=== PATIENT | female | born 1960 | race African-American/Black ===

== ENCOUNTER 2024-04-10 08:22 | Observation (INO) | payer OTHER ==
[2024-04-10] MEDS: oxyCODONE ER 10 MG TAB.ER PO ONE ×2 (09:16→18:55)
[2024-04-10] MEDS: Pregabalin 25 MG Cap PO ONE ×2 (09:16→18:55)
[2024-04-10] MEDS: Acetaminophen 325 MG Tab PO ONE ×2 (09:16→18:54)
[2024-04-10] MEDS ORDERED: Propofol 200 MG/20 ML SDV ONE ×3 (09:40→11:28)
[2024-04-10] MEDS ORDERED: dexmedeTOMIDine HCl 200 MCG/2 ML SDV ONE (09:41)
[2024-04-10] MEDS ORDERED: Ropivacaine 0.5% 5 MG/ML 30 ML SDV ONE (09:41)
[2024-04-10] MEDS ORDERED: Ondansetron 4 MG/2 ML SDV ONE (09:41)
[2024-04-10] MEDS ORDERED: Midazolam 1 MG/ML 2 ML SDV ONE (09:52)
[2024-04-10] MEDS ORDERED: Tranexamic Acid 1,000 MG/10 ML Vial ONE (10:01)
[2024-04-10] MEDS ORDERED: VANCOmycin 1 GM SDV ONE (10:02)
[2024-04-10] MEDS ORDERED: Lactated Ringers 1,000 ML IV ONE (10:17)
[2024-04-10] MEDS ORDERED: Phenylephrine 1% 10 MG/ML SDV ONE (10:36)
[2024-04-10] MEDS ORDERED: ceFAZolin 2 GM Vial ONE (10:45)
[2024-04-10] MEDS ORDERED: Lactated Ringers 1,000 ML ONE (10:52)
[2024-04-10] MEDS ORDERED: Ketamine 200 MG/20 ML MDV ONE (11:30)
[2024-04-10] MEDS: Morphine 8 MG, EPINEPHrine 0.3 MG, Cefuroxime 750 MG, Ketorolac 30 MG, Sodium Chloride ... PRN (11:47)
[2024-04-10] MEDS: Tranexamic Acid 1,000 MG/10 ML Vial ONE (11:53)
[2024-04-10] MEDS: VANCOmycin 1 GM SDV ONE (11:53)
[2024-04-10] MEDS: Triamcinolone Acetonide 40 MG/ML 1 ML SDV ONE (12:16)
[2024-04-10] MEDS: Bupivacaine 0.25% 10 ML SDV ONE (12:16)
[2024-04-10] MEDS ORDERED: HYDROmorphone 0.5 MG/0.5 ML Syringe IVPUSH PRN (12:40)
[2024-04-10] MEDS ORDERED: fentaNYL 100 MCG/2 ML SDV IVPUSH PRN (12:40)
[2024-04-10] MEDS: oxyCODONE 5 MG Tab PO PRN ×2 (15:05→19:00)
[2024-04-10] MEDS: Ondansetron 4 MG/2 ML SDV IVPUSH PRN (15:50)
[2024-04-10] MEDS: Acetaminophen 325 MG Tab PO PRN (16:15)
[2024-04-10] MEDS ORDERED: hydrALAZINE 20 MG/ML SDV IVPUSH PRN (18:58)
[2024-04-10] MEDS ORDERED: Naloxone 0.4 MG/ML SDV IVPUSH PRN ×2 (18:59)
[2024-04-10] MEDS ORDERED: Cyclobenzaprine 10 MG Tab PO PRN (18:59)
[2024-04-10] MEDS ORDERED: Sennosides 8.6 MG Tab PO PRN (18:59)
[2024-04-10] MEDS ORDERED: Ondansetron 4 MG/2 ML SDV IVPUSH PRN (18:59)
[2024-04-10] MEDS ORDERED: Morphine 2 MG/ML SYRINGE IVPUSH PRN (18:59)
[2024-04-10] MEDS ORDERED: Magnesium Hydroxide 400 MG/5 ML Susp 30 ML Cup PO PRN (18:59)
[2024-04-10] MEDS: Lisinopril 10 MG Tab PO SCH (19:53)
[2024-04-10] MEDS: Hydrochlorothiazide 12.5 MG Cap PO SCH (19:54)
[2024-04-10] MEDS: Docusate Sodium 100 MG Cap PO SCH (20:02)
[2024-04-10] MEDS: Famotidine 20 MG Tab PO SCH (20:02)
[2024-04-11 08:19] LABS: HEMATOCRIT 38.9 % (37.0-47.0); HEMOGLOBIN 12.8 gm/dl (12.0-16.0); MEAN CORPUSCULAR HEMOGLOBIN 29.4 pg (28.0-32.0); MEAN CORPUSCULAR HGB CONC 32.9 g/dl (32.0-36.0); MEAN CORPUSCULAR VOLUME 89.2 fl (83.0-99.0); MEAN PLATELET VOLUME 10.5 fl (9.4-12.3); PLATELET COUNT,PLT 194 K/mm3 (150-400); RED BLOOD CELL COUNT 4.36 M/mm3 (4.10-5.30); WHITE BLOOD CELL COUNT,WBC 8.64 K/mm3 (3.9-11.3)
[2024-04-11 08:59] LABS: A/G RATIO 0.9 (1-2); ALBUMIN 3.3 g/dl (3.4-5.0); ANION GAP 10.2 (5-15); BILIRUBIN TOTAL 0.5 mg/dL (0.2-1.0); BUN/CREATININE RATIO 16.7 (14-18); CALCIUM 8.9 mg/dL (8.5-10.1); CREATININE 0.9 mg/dL (0.55-1.02); EST CRCL DRUG DOSING (CG) 58.32 mL/min; POTASSIUM,K 5.2 mEq/L (3.5-5.1); PROTEIN TOTAL,TP 6.9 g/dl (6.4-8.2)
[2024-04-11] MEDS: Aspirin 325 MG Tab.EC PO SCH (09:15)
== END 2024-04-11 10:18 | disposition home or self-care (01) ==
LOC: JD.SDS 08:22 → JD.MS 18:46
PROVIDERS: ADMIT Orthopaedic Surgery; ATTEND Orthopaedic Surgery
DX: M17.0 Bilateral primary osteoarthritis of knee (principal); I10 Essential (primary) hypertension; E11.9 Type 2 diabetes mellitus without complications; E66.01 Morbid (severe) obesity due to excess calories; E78.00 Pure hypercholesterolemia, unspecified; Z68.38 Body mass index [BMI] 38.0-38.9, adult; Z79.899 Other long term (current) drug therapy; Z79.84 Long term (current) use of oral hypoglycemic drugs
CPT/HCPCS: 01400; 36415; 64447; 73560-26-RT; 73560-RT; 80053; 85027; 94760; 97110-GP; 97116-GP; 97162-GP; 97530-GP; A9270-GY; C1713; C1776; G0378; J0171; J0665; J0690; J0697; J1885; J2250; J2272; J2371; J2405; J2704; J2795; J3301; J3490; J7120

== ENCOUNTER 2024-09-07 08:16 | Day surgery (SDC) | payer OTHER ==
[2024-09-07] MEDS: Polymyxin B/Trimethoprim 10 ML Bottle EYELF SCH (08:49)
[2024-09-07] MEDS: Brimonidine 0.2% Ophth Soln 5 ML Bottle EYELF SCH (08:54)
[2024-09-07] MEDS: Phenylephrine 2.5% Ophth Soln 2 ML Bot EYELF SCH (08:59)
[2024-09-07] MEDS: Tropicamide 1% Ophth Soln 3 ML Bottle EYELF SCH (09:08)
[2024-09-07] MEDS: Tetracaine HCl/PF 0.5% 4 ML Bottle EYEBOTH SCH (10:04)
[2024-09-07] MEDS: Lidocaine 1% PF 2 ML SDV INJECT SCH (10:27)
[2024-09-07] MEDS: Cefuroxime 10 MG/ML SYRINGE EYELF SCH (10:38)
[2024-09-07] MEDS: Pilocarpine 4% Ophth Soln 15 ML Bot EYELF SCH (10:40)
== END 2024-09-07 10:42 ==
LOC: JD.SDS 08:16
PROVIDERS: ATTEND Ophthalmology
DX: E11.36 Type 2 diabetes mellitus with diabetic cataract (principal); I10 Essential (primary) hypertension; E78.00 Pure hypercholesterolemia, unspecified; Z79.899 Other long term (current) drug therapy
CPT/HCPCS: 66984; A9270; J3490